=== PATIENT | female | born 1975 | race Caucasian/White ===

== ENCOUNTER 2016-12-03 23:00 | Observation (INO) | payer OTHER ==
[~2016-12-03 23:00] MED LIST: DOXY100T PO; LORTA5 PO; SULF-154 PO; Z.0.NO CURRENT MEDS
[2016-12-03 23:04] VITALS: BP 142/99; PULSE 71; RESP 16; TEMP 98.8; O2SAT 98
[2016-12-04] VITALS (10 sets, daily range): BP systolic 100–139; BP diastolic 55–65; PULSE 54–79; RESP 16–20; TEMP 97.7–98.5; O2SAT 95–99
[2016-12-04] MEDS ORDERED: ASPIRIN 81 MG CHEW TAB PO ONE
[2016-12-04] MEDS ORDERED: SODIUM CHLORIDE 0.9% FLUSH 10 ML FLUSH IVF PRN
[2016-12-04] MEDS ORDERED: NITROGLYCERIN 0.4 MG SL 25 TABS/BTL SL ONE
--- NOTE | 2016-12-04 00:35 | RADRPT ---
EXAM DATE/TIME: 12/03/2016 23:47 [facility] COMPARISON: No previous studies available for comparison. INDICATIONS : Chest pain. MEDICAL HISTORY : None. SURGICAL HISTORY : None. ENCOUNTER: Initial ACUITY: 1 day PAIN SCORE: 0/10 LOCATION: Bilateral chest FINDINGS: A single view of the chest demonstrates the lungs to be symmetrically aerated without evidence of mas s, infiltrate or effusion. The cardiomediastinal contours are unremarkable. Osseous structures are intact. CONCLUSION: No acute disease. Bert Xiao MD on December 04, 2016 at 0:34 Board Certified Radiologist. This report was verified electronically.
[2016-12-04 00:39] LABS: AUTOMATED NEUTROPHIL # 4.1 TH/MM3 (1.8-7.7); BASOPHIL % 0.5 % (0.0-2.0); EOSINOPHIL # 0.2 TH/MM3 (0-0.4); EOSINOPHIL % 2.7 % (0.0-4.0); HEMO FLAGS DIFF FINAL; LYMPH % 39.2 % (9.0-44.0); LYMPHOCYTE # 3.4 TH/MM3 (1.0-4.8); MEAN CELL VOLUME 86.5 FL (80.0-100.0); MEAN CORPUSCULAR HEMOGLOBIN 29.7 PG (27.0-34.0); MEAN CORPUSCULAR HGB CONC 34.4 % (32.0-36.0); MONO % 9.7 % (0.0-8.0); NEUT % 47.9 % (16.0-70.0); PLATELET COUNT 194 TH/MM3 (150-450); RED BLOOD COUNT 4.28 MIL/MM3 (4.00-5.30); RED CELL DISTRIBUTION WIDTH 12.8 % (11.6-17.2); WHITE BLOOD COUNT 8.7 TH/MM3 (4.0-11.0)
[2016-12-04 00:52] LABS: APTT (PATIENT) 25.7 SEC (24.3-30.1); PROTHROMBIN TIME - PATIENT 10.8 SEC (9.8-11.6)
--- NOTE | 2016-12-04 01:09 | PD ---
HPI Chief Complaint: Chest Pain Time Seen by Provider: 23:30 Travel History International Travel<30 days: No Contact w/Intl Traveler<30days: No Traveled to known affect area: No History of Present Illness HPI The patient is a 41 year old female who presents to the [facility] emergency department with a history of chest pain that began at 10 pm. It feels like a "squeezing sensation of the heart". It lasted 15 minutes. She was studying at the time. It is on the left side of the chest. She denies diaphoresis, SOB, nausea, vomiting, or radiation of the pain. The same symptoms also occurred one time a few months ago for 15 minutes. She denies being evaluated for it at that time. She denies having any history of hypertension, hyperlipidemia, diabetes mellitus, or prior heart disease. She denies having any significant family history of heart disease. She does report that she occasionally smokes cigarettes. On review of systems, the patient denies any recent fevers, cough, congestion, neck pain, indigestion or heartburn , abdominal pain, diarrhea, urinary symptoms, or neurologic symptoms. She denies having a primary care physician. [facility] Past Medical History Narrative Medical The patient's past medical history is reportedly None. Medical History: Denies Significant Hx Immunizations Current: Yes ?: Not LMP: 12/03/16 : 1 Para: 1 Past Surgical History Narrative Surgical The patient's past surgical history is reportedly None Surgical History: No Previous Surgery Social History Alcohol Use: No Tobacco Use: Yes (1 cig per week.) Substance Use: No Allergies-Medications (Allergen,Severity, Reaction): Coded Allergies: No Known Allergies (Verified , 12/03/16) Reported Meds & Prescriptions Reported Meds & Active Scripts Active Review of Systems Except as stated in HPI: all other systems reviewed are Neg General / Constitutional: No: Fever Eyes: No: Visual changes HENT: No: Headaches Cardiovascular: Positive: Chest Pain or Discomfort Respiratory: No: Shortness of Breath Gastrointestinal: No: Abdominal Pain Genitourinary: No: Dysuria Musculoskeletal: No: Pain Skin: No Rash Neurologic: No: Weakness Psychiatric: No: Depression Endocrine: No: Polydipsia Hematologic/Lymphatic: No: Easy Bruising Physical Exam Narrative General: The patient is a well-developed well-nourished female in no acute distress. Head and Neck exam: Head is normocephalic atraumatic. Eyes: EOMI, pupils are equal round and reactive to light. Nose: Midline septum with pink mucous membranes Mouth: Dentition unremarkable. Moist mucus membranes. Posterior oropharynx is not erythematous. No tonsillar hypertrophy. Uvula midline. Airway patent. Neck: No palpable lymphadenopathy. No nuchal rigidity. No thyromegaly. Cardiovascular: Regular rate and rhythm without murmurs, gallops, or rubs. No pulse deficit to the extremities on simultaneous auscultation and palpation of her radial artery. Lungs: Clear to auscultation bilaterally. No wheezes, rhonchi, or rales. Abdomen: Soft, without tenderness to palpation in all 4 quadrants of the abdomen. No guarding, rebound, or rigidity. Normal bowel sounds are audible. No tenderness on palpation of McBurney's point. Negative Silver[place] sign. Extremities: No clubbing, cyanosis, or edema. 2+ pulses in all 4 extremities. No calf tenderness on palpation. Back: No spinous process tenderness to palpation. No costovertebral angle tenderness to palpation. Neurologic Exam: Grossly nonfocal. Skin Exam: No rash noted. Intact skin that is warm and dry. Data Data Last Documented VS Vital Signs Date Time Temp Pulse Resp B/P Pulse Ox O2 Delivery O2 Flow Rate FiO2 12/03/16 23:04 98.8 71 16 142/99 98 Orders Electrocardiogram (12/03/16 23:49) B-Type Natriuretic Peptide (12/03/16 23:49) Ckmb (Isoenzyme) Profile (12/03/16 23:49) Complete Blood Count With Diff (12/03/16 23:49) Comprehensive Metabolic Panel (12/03/16 23:49) D-Dimer (12/03/16 23:49) Magnesium (Mg) (12/03/16 23:49) Prothrombin Time / Inr (Pt) (12/03/16 23:49) Act Partial Throm Time (Ptt) (12/03/16 23:49) Troponin I (12/03/16 23:49) Lipase (12/03/16 23:49) Chest, Single Ap (12/03/16 23:49) Ecg Monitoring (12/03/16 23:49) Bilateral Bp Monitoring (12/03/16 23:49) Iv Access Insert/Monitor (12/03/16 23:49) Oximetry (12/03/16 23:49) Oxygen Administration (12/03/16 23:49) Aspirin Chew (Aspirin Chew) (12/04/16 00:00) Sodium Chloride 0.9% Flush (Ns Flush) (12/04/16 00:00) Nitroglycerin Sl (Nitrostat Sl) (12/04/16 00:00) Ed Urine Pregnancytest Poc (12/03/16 23:49) Admit Order (Ed Use Only) (12/04/16 01:54) Labs Laboratory Tests Test 12/04/16 00:19 White Blood Count 8.7 TH/MM3 Red Blood Count 4.28 MIL/MM3 Hemoglobin 12.7 GM/DL Hematocrit 37.0 % Mean Corpuscular Volume 86.5 FL Mean Corpuscular Hemoglobin 29.7 PG Mean Corpuscular Hemoglobin 34.4 % Concent Red Cell Distribution Width 12.8 % Platelet Count 194 TH/MM3 Mean Platelet Volume 7.8 FL Neutrophils (%) (Auto) 47.9 % Lymphocytes (%) (Auto) 39.2 % Monocytes (%) (Auto) 9.7 % Eosinophils (%) (Auto) 2.7 % Basophils (%) (Auto) 0.5 % Neutrophils # (Auto) 4.1 TH/MM3 Lymphocytes # (Auto) 3.4 TH/MM3 Monocytes # (Auto) 0.8 TH/MM3 Eosinophils # (Auto) 0.2 TH/MM3 Basophils # (Auto) 0.0 TH/MM3 CBC Comment DIFF FINAL Differential Comment Prothrombin Time 10.8 SEC Prothromb Time International 1.0 RATIO Ratio Activated Partial 25.7 SEC Thromboplast Time D-Dimer Quantitative (PE/DVT) 0.31 MG/L FEU Sodium Level 140 MEQ/L Potassium Level 3.6 MEQ/L Chloride Level 105 MEQ/L Carbon Dioxide Level 24.5 MEQ/L Anion Gap 11 MEQ/L Blood Urea Nitrogen 14 MG/DL Creatinine 0.82 MG/DL Estimat Glomerular Filtration 78 ML/MIN Rate Random Glucose 77 MG/DL Calcium Level 8.9 MG/DL Magnesium Level 2.0 MG/DL Total Bilirubin 0.6 MG/DL Aspartate Amino Transf 18 U/L (AST/SGOT) Alanine Aminotransferase 38 U/L (ALT/SGPT) Alkaline Phosphatase 51 U/L Total Creatine Kinase 59 U/L Troponin I LESS THAN 0.02 NG/ML B-Type Natriuretic Peptide 26 PG/ML Total Protein 7.3 GM/DL Albumin 3.8 GM/DL Lipase 119 U/L MDM Medical Decision Making Medical Screen Exam Complete: Yes Emergency Medical Condition: Yes Medical Record Reviewed: Yes Interpretation(s) Last Impressions Chest X-Ray 12/03/16 2349 Signed Impressions: Service Date/Time: Saturday, December 03, 2016 23:47 - CONCLUSION: No acute disease. Bert Xiao MD Differential Diagnosis Acute coronary syndrome, versus acid reflux, versus musculoskeletal strain, versus pneumonia, versus pulmonary embolism, versus pleurisy, versus costochondritis Narrative Course During the course of the patients emergency department visit, the patients history, examination, and differential diagnosis were reviewed with the patient. The patient had IV access obtained and blood work sent for analysis. The patient was placed on a cardiac monitor technician with oximetry and blood pressure monitoring. The patient had an ECG done on arrival that showed a sinus rhythm with sinus arrhythmia, no acute ST segment elevation. The patient was initially provided aspirin 162 mg by mouth 1. Nitroglycerin was written to be administered 1 when necessary chest pain. The patients laboratory studies were reviewed and remarkable for a white count of 8.7, hemoglobin 12.7, platelets 194 with 9.7 monocytes, CMP is remarkable for a GFR 78, CPK 59, troponin I less than 0.02, BNP 26, lipase 119, PT 10.8, PTT 25.7, d-dimer 0.31 decreased and the likelihood of pulmonary embolism in this patient with no other significant risk factors.- Radiology studies were reviewed and remarkable for a chest x-ray that shows no acute cardiopulmonary disease. The patient was agreeable with plan for admission to the chest pain center for rule out serial cardiac enzyme protocol followed by consideration of stress testing. The patients results were discussed with the patient, including the plan of care. I explained that further testing and/ or monitoring is indicated based on the patients history, examination, and/ or laboratory findings. Therefore, I recommended admission for additional evaluation. The patient expressed understanding and was agreeable with this plan. The patient was admitted to the hospital in stable condition and sent to a bed under the care of the chest pain center. Diagnosis Primary Impression: Chest pain, rule out acute myocardial infarction Admitting Information Admitting Physician Requests: Martine Perez. MD Dec 04, 2016 01:09
[2016-12-04 01:15] LABS: ALT (GPT) 38 U/L (10-53); ANION GAP 11 MEQ/L (5-15); AST (GOT) 18 U/L (15-37); BICARBONATE 24.5 MEQ/L (21.0-32.0); BLOOD UREA NITROGEN 14 MG/DL (7-18); CHLORIDE 105 MEQ/L (98-107); GLOMERULAR FILTRATION RATE 78 ML/MIN (>89); POTASSIUM 3.6 MEQ/L (3.5-5.1); SODIUM (NA) 140 MEQ/L (136-145)
[2016-12-04 01:20] LABS: ALKALINE PHOSPHATASE 51 U/L (45-117); TOTAL BILIRUBIN ADULT 0.6 MG/DL (0.2-1.0)
[2016-12-04 01:30] LABS: CREATINE KINASE 59 U/L (26-192)
[2016-12-04] MEDS ORDERED: ACETAMINOPHEN 500 MG CPLT PO PRN (04:45)
[2016-12-04] MEDS ORDERED: SODIUM CHLORIDE 0.9% FLUSH 10 ML FLUSH IV FLUSH PRN (04:45)
[2016-12-04 05:34] LABS: CREATINE KINASE 50 U/L (26-192)
[2016-12-04] MEDS ORDERED: NITROGLYCERIN 0.4 MG SL 25 TABS/BTL SL PRN (07:30)
[2016-12-04 08:30] LABS: CREATINE KINASE 52 U/L (26-192)
[2016-12-04] MEDS ORDERED: SODIUM CHLORIDE 0.9% FLUSH 10 ML FLUSH IV FLUSH SCH (09:00)
--- NOTE | 2016-12-04 09:05 | HHI.HP ---
HPI Primary Care Physician No Primary Care Physician Chief Complaint Left sided chest pain History of Present Illness Ms. Matos is a 41-year-old female patient with no known medical history who presented to the ED with complaints of left-sided chest pain. Patient states she was studying at home sitting in a chair when she noticed a left-sided chest pain right underneath left breast that was mild and gently squeezing in nature, rated a 2/10 at its worse and lasted roughly 15 minutes and then slowly resided. Patient did not recognize any specific aggravating or relieving factors. Denies any associated symptoms such as shortness of breath, diaphoresis , paraesthesia, abdominal pain, nausea or vomiting. Also this am patient complaints of similar pain lasting around 10 minutes and resided. Patient states she has recognized this type of pain a couple months ago but it quickly resolved and she never sought work-up. She states generally her health is great. Does not currently have a PCP but is in the process of establishing one. Review of Systems Cardiovascular: COMPLAINS OF: Chest pain Past Family Social History Allergies: Coded Allergies: No Known Allergies (Verified , 12/03/16) Past Medical History No medical history. Past Surgical History No surgical history. Reported Medications Reported Meds & Active Scripts Active Active Ordered Medications Current Medications Medications (Trade) Dose Ordered Sig/Benoit Route Start Time Stop Time Status Last Admin (NS Flush) 2 ml UNSCH PRN IV FLUSH 12/04/16 04:45 (NS Flush) 2 ml BID IV FLUSH 12/04/16 09:00 (Tylenol) 500 mg Q4H PRN PO 12/04/16 04:45 (Nitrostat Sl) 0.4 mg Q5M PRN SL 12/04/16 07:30 (Aspirin) 325 mg DAILY PO 12/05/16 09:00 Family History Maternal family medical history significant for diabetes mellitus. Paternal family medical history significant for hypertension and unspecified cancer. Social History Patient admits to smoking 1 cigarette a week socially. Does admit to occasional alcohol use. Denies any illicit drug use. Physical Exam Vital Signs Vital Signs Date Time Temp Pulse Resp B/P Pulse Ox O2 Delivery O2 Flow Rate FiO2 12/04/16 07:40 97 21 12/04/16 07:32 97.7 73 20 108/57 97 12/04/16 05:37 98.5 54 20 100/55 98 12/04/16 05:32 60 12/04/16 04:57 18 98 Room Air 12/04/16 04:57 98 Room Air 12/04/16 04:56 79 18 126/63 98 Room Air 12/04/16 04:40 97 12/04/16 02:16 60 16 139/63 99 Room Air 12/03/16 23:04 98.8 71 16 142/99 98 Physical Exam GENERAL: Alert WN, WD, NAD, pleasant, female. HEAD: NC, AT NECK: Supple, no masses, trachea midline CV: RRR, no rub, gallop, or JVD. RESP: Clear lungs throughout bilateral, no crackles, wheeze, rhonchi, symmetrical chest rise, nonlabored, able to speak in full sentences ABD: Soft, NT, ND, no masses, positive bowel tones, negative Collier sign EXT: Pulses +24, no dependent edema MS: Normal tone 4 extremities, nontender, no obvious deformities, full range of motion NEURO: CN II through CN XII grossly intact, motor strength 5/5, gait WNL PSYCH: A+O 3, pleasant, appropriate speech, appropriate mood and affect, insight and judgment SKIN: Normal turgor, normal texture, no lesions, no rashes, brisk cap refill, even hair distribution Laboratory Laboratory Tests Test 12/04/16 12/04/16 12/04/16 00:19 04:50 07:38 White Blood Count 8.7 Red Blood Count 4.28 Hemoglobin 12.7 Hematocrit 37.0 Mean Corpuscular Volume 86.5 Mean Corpuscular Hemoglobin 29.7 Mean Corpuscular Hemoglobin 34.4 Concent Red Cell Distribution Width 12.8 Platelet Count 194 Mean Platelet Volume 7.8 Neutrophils (%) (Auto) 47.9 Lymphocytes (%) (Auto) 39.2 Monocytes (%) (Auto) 9.7 Eosinophils (%) (Auto) 2.7 Basophils (%) (Auto) 0.5 Neutrophils # (Auto) 4.1 Lymphocytes # (Auto) 3.4 Monocytes # (Auto) 0.8 Eosinophils # (Auto) 0.2 Basophils # (Auto) 0.0 CBC Comment DIFF FINAL Differential Comment Prothrombin Time 10.8 Prothromb Time International 1.0 Ratio Activated Partial 25.7 Thromboplast Time D-Dimer Quantitative (PE/DVT) 0.31 Sodium Level 140 Potassium Level 3.6 Chloride Level 105 Carbon Dioxide Level 24.5 Anion Gap 11 Blood Urea Nitrogen 14 Creatinine 0.82 Estimat Glomerular Filtration 78 Rate Random Glucose 77 Calcium Level 8.9 Magnesium Level 2.0 Total Bilirubin 0.6 Aspartate Amino Transf 18 (AST/SGOT) Alanine Aminotransferase 38 (ALT/SGPT) Alkaline Phosphatase 51 Total Creatine Kinase 59 50 52 Troponin I LESS THAN 0.02 LESS THAN 0.02 LESS THAN 0.02 B-Type Natriuretic Peptide 26 Total Protein 7.3 Albumin 3.8 Lipase 119 Result Diagram: 12/04/16 0019 12/04/16 0019 Imaging Last 48 hours Impressions Chest X-Ray 12/03/16 2539 Signed Impressions: Service Date/Time: Saturday, December 03, 2016 23:47 - CONCLUSION: No acute disease. Bert Xiao MD Assessment and Plan Assessment and Plan #1 Atypical chest pain: Admitted to chest pain center. Serial EKGs and serial troponins ordered for ruling out purposes. EKGs showing non specific ST elevation likely related to early repolarization. Troponins unremarkable. D- dimer WNL. CXR unremarkable. Patient seen and examined by Dr. Esquivel who recommends a treadmill stress test. If unremarkable patient will be discharged later today. Patient stable at this time and agreeable to the plan. Pat Thomas Dec 04, 2016 09:05
--- NOTE | 2016-12-04 12:25 | HHI.DCPOC ---
Discharge Care Plan Diagnosis: (1) Atypical chest pain Goals to Promote Your Health * To prevent worsening of your condition and complications * To maintain your health at the optimal level Directions to Meet Your Goals Take your medications as prescribed Follow your dietary instruction Follow activity as directed Keep your appointments as scheduled Take your immunizations and boosters as scheduled If your symptoms worsen call your PCP, if no PCP go to Urgent Care Center or Emergency Room Smoking is Dangerous to Your Health. Avoid second hand smoke Call the 24-hour hour crisis hotline for domestic abuse at Pat Thomas Dec 04, 2016 12:25
--- NOTE | 2016-12-04 16:35 | EKG ---
Date Performed: 12/04/2016 Time Performed: 07:53:23 PTAGE: 41 years EKG: SINUS BRADYCARDIA WITH SINUS ARRHYTHMIA BORDERLINE ECG EARLY REPOLARIZATION PREVIOUS TRACING : 12/04/2016 04.49 \ DOCTOR: Amadeo Fowler Interpretating Date/Time 12/04/2016 16:34:11
--- NOTE | 2016-12-04 16:36 | EKG ---
Date Performed: 12/04/2016 Time Performed: 04:49:25 PTAGE: 41 years EKG: Sinus rhythm WITH SINUS ARRHYTHMIA NORMAL ECG EARLY REPOLARIZATION WARNING: DATA QUALITY MAY AFFECT INTERPRETATIO N NO PREVIOUS TRACING DOCTOR: Amadeo Fowler Interpretating Date/Time 12/04/2016 16:34:59
--- NOTE | 2016-12-04 16:37 | EKG ---
Date Performed: 12/03/2016 Time Performed: 23:15:59 PTAGE: 41 years EKG: Sinus rhythm WITH SINUS ARRHYTHMIA NORMAL ECG NO PREVIOUS TRACING DOCTOR: Amadeo Fowler Interpretating Date/Time 12/04/2016 16:35:13
--- NOTE | 2016-12-04 16:38 | TR ---
Date Performed: 12/04/2016 Time Performed: 11:53:47 DOCTOR: Amadeo Fowler DRUG LIST: CLINICAL HISTORY: CHEST PAIN R/O ND REASON FOR TEST: REASON FOR ENDING: OBSERVATION: CONCLUSION: Micha protocol completed. Stopped sec to exceeding target heart rate and leg fatigue . Maximum UT=831 % Target HR Achieved=93.0% Maximum QH=439/70 Total Exercise Time=6:00. No reprod romana st discomfort. Rare PVC. No st t segment changes to sugg ischemia. Early repolarization prior to exam , st return to baseline in stage 1. Normal bp response. Good exercise tolerance. Recovery quick and u nremarkable. COMMENTS: Patient exercised using the Micha protocol. No electrocardiographic changes were seen to suggest ischemia. Hemodynamic response to exercise was normal. No significant arrhythmia was prese nt.
[2016-12-05] MEDS ORDERED: ASPIRIN 325 MG TAB PO SCH (09:00)
== END 2016-12-04 14:37 | disposition home or self-care (01) ==
LOC: NEPE 23:00 → NEDA 12-04 01:56 → NEPFCDU 12-04 05:27
PROVIDERS: ADMIT Internal Medicine Interventional Cardiology; ATTEND Internal Medicine Interventional Cardiology
DX: R07.89 Other chest pain (principal); I49.8 Other specified cardiac arrhythmias; F17.210 Nicotine dependence, cigarettes, uncomplicated
CPT/HCPCS: 71010; 80053; 82550; 83690; 83735; 83880; 84484; 84703; 85025; 85379; 85610; 85730; 93005; 93017; 99285; G0378

== ENCOUNTER 2017-07-07 19:21 | Emergency (ER) | payer MEDICAID, OTHER ==
[2017-07-07 19:47] VITALS: BP 147/71; PULSE 73; RESP 18; TEMP 98.6; O2SAT 100
--- NOTE | 2017-07-07 21:09 | RADRPT ---
EXAM DATE/TIME: 07/07/2017 20:23 [facility] COMPARISON: No previous studies available for comparison. INDICATIONS : Cough and short of breath. MEDICAL HISTORY : None. SURGICAL HISTORY : None. ENCOUNTER: Initial ACUITY: 1 day PAIN SCORE: 0/10 LOCATION: Bilateral chest FINDINGS: PA and lateral views of the chest demonstrate the lungs to be symmetrically aerated without evidence of mass, infiltrate or effusion. The cardiomediastinal contours are unremarkable. Osseous structure s are intact. CONCLUSION: No acute cardiopulmonary disease. Toby Ely MD on July 07, 2017 at 21:08 Board Certified Radiologist. This report was verified electronically.
--- NOTE | 2017-07-08 12:11 | PD ---
HPI Chief Complaint: Respiratory Symptoms Time Seen by Provider: 19:46 Travel History International Travel<30 days: No Contact w/Intl Traveler<30days: No Traveled to known affect area: No History of Present Illness HPI 41-year-old female presents to emergency department for evaluation of shortness of breath 1 month. She states that his difficult to take a deep breath. She states she has been feeling like she cannot get enough air. She denies any fever or chills. No recent illnesses. No chest pain or tightness. She has no other symptoms to report. [facility] Past Medical History Medical History: Denies Significant Hx Heart Rhythm Problems: No Cardiac Catheterization: No Cardiovascular Problems: No High Cholesterol: No Congestive Heart Failure: No Diabetes: No Immunizations Current: Yes : 1 Para: 1 Past Surgical History Coronary Artery Bypass Graft: No Social History Alcohol Use: No Tobacco Use: Yes (1 cig per week.) Substance Use: No Allergies-Medications (Allergen,Severity, Reaction): Coded Allergies: No Known Allergies (Verified , 12/03/16) Reported Meds & Prescriptions Reported Meds & Active Scripts Active Review of Systems Except as stated in HPI: all other systems reviewed are Neg Physical Exam Narrative Well-nourished female patient, appears nontoxic and in no acute distress. Even respirations. Regular heart rate. Moves all extremities without difficulties beaks clearly. Data Data Last Documented VS Vital Signs Date Time Temp Pulse Resp B/P (MAP) Pulse Ox O2 Delivery O2 Flow Rate FiO2 07/07/17 19:47 98.6 73 18 147/71 (96) 100 Orders Orders Chest, Pa & Lat (07/07/17 ) [facility] Medical Decision Making Medical Screen Exam Complete: Yes Emergency Medical Condition: Yes Medical Record Reviewed: Yes Differential Diagnosis Asthma versus COPD versus allergies versus PE versus anxiety Narrative Course 41-year-old female presents to the emergency department for evaluation of difficulty getting a deep breath 1 month. Patient appears nontoxic. Workup is initiated in triage. Prior to the placement, patient chooses to leave. AMA: The risks of leaving against medical advice without further evaluation treatment were discussed with the patient. These risks include cardiac dysfunction, cardiac dysrhythmia, possible heart attack, possible stroke or . The patient indicated understanding of these risks and appeared to have the capacity to make this decision. Diagnosis Primary Impression: Shortness of breath Patient Instructions: General Instructions Departure Forms: Tests/Procedures Disposition: 07 AGAINST MEDICAL ADVICE Condition: Stable Vanessa Ríos Jul 08, 2017 12:11
== END 2017-07-07 23:26 | disposition left against medical advice (07) ==
LOC: NED 19:21
DX: R06.02 Shortness of breath (principal); Z53.21 Procedure and treatment not carried out due to patient leaving prior to being seen by health care provider
CPT/HCPCS: 71046; 99283